=== PATIENT | female | born 1985 | race Caucasian/White ===

== ENCOUNTER 2016-07-07 04:25 | Emergency (ER) | payer OTHER ==
[~2016-07-07 04:25] MED LIST: NITR100C62 PO; ONDA4TAB10 SL; [UNRECOGNIZED DRUG - CODE] PO
[2016-07-07 04:39] VITALS: BP 119/67
--- NOTE | 2016-07-07 04:59 | ED.ADGEN ---
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 Pt states that at work she was lifting a pt and strained her upper back on 07/03 , she was prescribed ibuprofen. Back sx improving, no leg sx/saddle anesthesia/ incontinence. On 07/05 pt states she developed L-sided abdominal discomfort which she says worsened last night. Described as sharp/crampy, constant worsened with some positions no bloating/n/v/d. States she thinks she may be constipated, she had one small hard BM yesterday which she had to strain to produce. No fever/chills /myalgias/cough/cp/sob/carrion. Pt is (comfort supp only) child greater than 1 year old. Pt denies trauma,surgery,estrogen use,history of DVT or PE, and immobilization[] Review of Systems Constitutional: Denies fever or chills [] Eyes: Denies change in visual acuity, redness, or eye pain [] HENT: Denies nasal congestion or sore throat [] Respiratory: Denies cough or shortness of breath [] Cardiovascular: No additional information not addressed in HPI [] GI: see HPI, Denies nausea, vomiting, bloody stools or diarrhea [] : Denies dysuria or hematuria [] Musculoskeletal: see HPI, Denies joint pain [] Integument: Denies rash or skin lesions [] Neurologic: Denies headache, focal weakness or sensory changes [] Endocrine: Denies polyuria or polydipsia [] Family History n/c Current Medication Current Medications Medications (Trade) Dose Ordered Sig/Tesha Start Time Stop Time Status Last Admin Dose Admin Dicyclomine HCl (Bentyl) 20 mg 1X ONCE 07/07/16 05:45 07/07/16 05:46 UNV Glycerin (Sani-Supp Adult) 1 supp 1X ONCE 07/07/16 05:45 07/07/16 05:46 UNV Lactulose 20 gm 1X ONCE 07/07/16 05:45 07/07/16 05:46 UNV ibuprofen Allergies Allergies Coded Allergies Type Severity Reaction Last Updated Verified Penicillins Allergy Unknown 5/25/15 No Physical Exam Constitutional: Well developed, well nourished, no acute distress, pt moves gingerly/carefully as if to avoid pain HENT: Normocephalic, atraumatic, bilateral external ears normal, oropharynx moist, no oral exudates, nose normal. [] Eyes: PERRLA, EOMI, conjunctiva normal, no discharge. [] Neck: Normal range of motion, no tenderness, supple, no stridor. [] Cardiovascular:Heart rate regular rhythm, peripheral pulses normal Lungs & Thorax: Bilateral breath sounds clear to auscultation [] Abdomen: Bowel sounds normal, soft, nondistended, L-sided TTP no r/g/mass, neg mcburney/villasenor Skin: Warm, dry, no erythema, no rash. [] Back: No tenderness, no CVA tenderness. [] Extremities: No tenderness, no cyanosis, no clubbing, ROM intact, no edema. [] Neurologic: Alert and oriented X 3, normal motor function, normal sensory function, no focal deficits noted. [] Psychologic: Affect normal, judgement normal, mood normal. [] Negative Abdominal Assessment The patient denies flank pain, anorexia, nausea or vomiting, dysphagia, black or bloody stools or weight loss. EKG Results [] Radiology/Procedures [] Current Data Laboratory Tests Test 07/07/16 04:30 07/07/16 04:55 07/07/16 04:57 Urine Collection Type Unknown Urine Color Yellow Urine Clarity Clear Urine pH 5.5 Urine Specific [place] 1.020 Urine Protein Neg (NEG-TRACE) Urine Glucose (UA) Negmg/dL (NEG) Urine Ketones (Stick) Negmg/dL (NEG) Urine Blood Neg (NEG) Urine Nitrite Neg (NEG) Urine Bilirubin Neg (NEG) Urine Urobilinogen Dipstick 0.2mg/dL (0.2 mg/dL) Urine Leukocyte Esterase Neg (NEG) Urine RBC 0/HPF (0-2) Urine WBC 1-4/HPF (0-4) Urine Squamous Epithelial Cells Few/LPF Urine Bacteria Few/HPF (0-FEW) White Blood Count 7.9x10^3/uL (4.0-11.0) Red Blood Count 4.64x10^6/uL (3.50-5.40) Hemoglobin 13.9g/dL (12.0-15.5) Hematocrit 42.0% (36.0-47.0) Mean Corpuscular Volume 91fL (79-100) Mean Corpuscular Hemoglobin 30pg (25-35) Mean Corpuscular Hemoglobin Concent 33g/dL (31-37) Red Cell Distribution Width 13.1% (11.5-14.5) Platelet Count 309x10^3/uL (140-400) Neutrophils (%) (Auto) 54% (31-73) Lymphocytes (%) (Auto) 31% (24-48) Monocytes (%) (Auto) 11% (0-9) H Eosinophils (%) (Auto) 4% (0-3) H Basophils (%) (Auto) 1% (0-3) Neutrophils # (Auto) 4.3x10^3uL (1.8-7.7) Lymphocytes # (Auto) 2.4x10^3/uL (1.0-4.8) Monocytes # (Auto) 0.8x10^3/uL (0.0-1.1) Eosinophils # (Auto) 0.3x10^3/uL (0.0-0.7) Basophils # (Auto) 0.0x10^3/uL (0.0-0.2) Sodium Level 140mmol/L (136-145) Potassium Level 3.7mmol/L (3.5-5.1) Chloride Level 103mmol/L (98-107) Carbon Dioxide Level 26mmol/L (21-32) Anion Gap 11 (6-14) Blood Urea Nitrogen 21mg/dL (7-20) H Creatinine 0.9mg/dL (0.6-1.0) Estimated GFR (Cockcroft-Gault) 74.0 BUN/Creatinine Ratio 23 (6-20) H Glucose Level 102mg/dL (70-99) H Calcium Level 8.4mg/dL (8.5-10.1) L Total Bilirubin 0.3mg/dL (0.2-1.0) Aspartate Amino Transf (AST/SGOT) 15U/L (15-37) Alanine Aminotransferase (ALT/SGPT) 33U/L (14-59) Alkaline Phosphatase 64U/L (46-116) Total Protein 7.2g/dL (6.4-8.2) Albumin 3.9g/dL (3.4-5.0) Albumin/Globulin Ratio 1.2 (1.0-1.7) Lipase 151U/L (73-393) Bedside Urine HCG, Qualitative hcg negative (Negative) Active Scripts Medications Dose Route/Sig Days Date Category Zofran Odt (Ondansetron) 4 Mg Tab.rapdis 1 Tab SL Q6HRS 09/14/14 Rx Macrobid 100 Mg Capsule (Nitrofurantoin Monohyd/M-Cryst) 100 Mg Capsule 1 Cap PO BID 09/14/14 Rx 19 Chewable Tablet ( Vit/Iron Fumarate/Fa) 1 Each Tab.chew 1 Each PO DAILY 09/14/14 Reported Vital Signs Date Time Temp Pulse Resp B/P Pulse Ox O2 Delivery O2 Flow Rate FiO2 07/07/16 04:39 98.2 61 20 98 Room Air Vital Signs Date Time Temp Pulse Resp B/P Pulse Ox O2 Delivery O2 Flow Rate FiO2 07/07/16 04:39 98.2 61 20 98 Room Air Vital Signs Date Time Temp Pulse Resp B/P Pulse Ox O2 Delivery O2 Flow Rate FiO2 07/07/16 04:39 98.2 61 20 98 Room Air Course & Med Decision Making Pertinent Labs and Imaging studies reviewed. (See chart for details) []AAS: no acute cardiopulmonary process, retained stool otherwise nonspecific nonobstructive bowel gas pattern. Labs/urine unremarkable I discussed treatment plan, pt expressed agreement/understanding. Critical Care Time Critical care time was [] minutes exclusive of procedures. Final Impression [] Problems: Departure Disposition: 01 HOME, SELF-CARE Diagnosis: constipation Condition: GOOD Patient Instructions: Constipation, Adult, [id number] Additional Instructions: Aggressive hydration, Increase noncaffeinated fluids (water) to 8-10 glasses daily. Increase dietary (psyllium) fiber to 20g daily. Increase daily exercise to stimulate bowels. Rx: lactulose, dicyclomine, glycerin supp, use as directed. As you are , need to "pump and dump" while taking these meds. Follow up with your doctor Sunday if not better. Return to ED with new or changing symptoms. TRACEE HOOD DO Jul 07, 2016 04:59
[2016-07-07 05:12] LABS: BASO % 1 % (0-3); EOS # 0.3 x10^3/uL (0.0-0.7); EOS % 4 % (0-3); HEMOGLOBIN 13.9 g/dL (12.0-15.5); LYMPH # 2.4 x10^3/uL (1.0-4.8); LYMPH % 31 % (24-48); MEAN CORPUSCULAR HEMOGLOBIN 30 pg (25-35); MEAN CORPUSCULAR HGB CONC 33 g/dL (31-37); MEAN CORPUSCULAR VOLUME 91 fL (79-100); MONO # 0.8 x10^3/uL (0.0-1.1); MONO % 11 % (0-9); NEUT # 4.3 x10^3uL (1.8-7.7); NEUT % 54 % (31-73); PLATELET COUNT 309 x10^3/uL (140-400); RED BLOOD COUNT 4.64 x10^6/uL (3.50-5.40); RED CELL DISTRIBUTION WIDTH 13.1 % (11.5-14.5); WHITE BLOOD COUNT 7.9 x10^3/uL (4.0-11.0)
[2016-07-07 05:18] LABS: BILIRUBIN,URINE NEG (NEG); CLARITY,URINE CLEAR; COLOR,URINE YELLOW; GLUCOSE,URINE NEG (NEG)
[2016-07-07 05:19] LABS: BACTERIA,URINE FEW /HPF (0-FEW); NITRITE,URINE NEG (NEG); RBC,URINE 0 /HPF (0-2); SQUAMOUS EPITHELIAL CELL,UR FEW /LPF; UROBILINOGEN,URINE 0.2 mg/dL (0.2 mg/dL)
[2016-07-07 05:24] LABS: ALBUMIN 3.9 g/dL (3.4-5.0); ALBUMIN/GLOBULIN RATIO 1.2 (1.0-1.7); CALCIUM 8.4 mg/dL (8.5-10.1); CREATININE 0.9 mg/dL (0.6-1.0); POTASSIUM 3.7 mmol/L (3.5-5.1); TOTAL BILIRUBIN 0.3 mg/dL (0.2-1.0); TOTAL PROTEIN 7.2 g/dL (6.4-8.2)
[2016-07-07] MEDS ORDERED: DICYCLOMINE HCL 20 MG TABLET PO ONE (06:00)
[2016-07-07] MEDS ORDERED: GLYCERIN ADULT 1 SUPP.RECT. PR ONE (06:00)
[2016-07-07] MEDS ORDERED: LACTULOSE 20 GM/30 ML SOLUTION. PO ONE (06:00)
--- NOTE | 2016-07-07 07:09 | RAD ---
Acute abdomen series with chest, 3 views, 07/07/2016: History: Left-sided abdominal pain There is a moderate amount stool in the right colon. The abdominal gas pattern shows no evidence of obstruction. No free air is seen in the abdomen. There is no evidence of organomegaly or abnormal abdominal calcification. The heart size is normal. The lungs are clear. There is no evidence of pleural fluid. IMPRESSION: No acute abdominal abnormality is detected.
== END 2016-07-07 05:45 | disposition home or self-care (01) ==
LOC: ER 04:25
DX: K59.00 Constipation, unspecified (principal); Z87.891 Personal history of nicotine dependence; Z88.0 Allergy status to penicillin
CPT/HCPCS: 36415; 74022; 80053; 81001; 81025; 83690; 85027; 99285-25

== ENCOUNTER 2017-11-02 10:26 | Emergency (ER) | payer OTHER ==
[~2017-11-02] VITALS: Ht 147.3 cm; Wt 81.6 kg
[2017-11-02 10:38] VITALS: BP 104/39
[2017-11-02] MEDS ORDERED: AZIT250T PO (10:48)
[2017-11-02] MEDS ORDERED: HYDR115S2 PO (10:48)
--- NOTE | 2017-11-02 10:49 | PHYS DOC ---
Past History Past Medical History: No Pertinent History Past Surgical History: Other Smoking: Non-smoker, Quit Greater Than 1 Year Alcohol Use: None Drug Use: None Adult General Chief Complaint Chief Complaint: FACE PAIN HPI HPI 32-year-old female patient complaining of nasal congestion and facial pain with sore throat and earache for the last several days with fever up to 100 since yesterday. Patient states she has history of sinus infection once a year and she thinks she has the same problem again. Review of Systems Review of Systems Constitutional: Reports fever Eyes: Denies change in visual acuity, redness, or eye pain [] HENT: Reports nasal congestion and sore throat and earache Respiratory: Reports cough, denies shortness of breath] Cardiovascular: No additional information not addressed in HPI [] GI: Denies abdominal pain, nausea, vomiting, bloody stools or diarrhea [] : Denies dysuria or hematuria [] Musculoskeletal: Denies back pain or joint pain [] Integument: Denies rash or skin lesions [] Neurologic: Denies headache, focal weakness or sensory changes [] Endocrine: Denies polyuria or polydipsia [] All other systems were reviewed and found to be within normal limits, except as documented in this note. Allergies Allergies Allergies Coded Allergies Type Severity Reaction Last Updated Verified Penicillins Allergy Unknown 11/02/17 No Physical Exam Physical Exam Constitutional: Well developed, well nourished, mild distress, non-toxic appearance. [] HENT: Normocephalic, atraumatic, bilateral external ears normal, oropharynx moist, pharyngeal erythema, no oral exudates, nasal congestion with erythematous mucosa, maxillary sinus tenderness Eyes: PERRLA, EOMI, conjunctiva normal, no discharge. [] Neck: Normal range of motion, no tenderness, supple, no stridor. [] Cardiovascular:Heart rate regular rhythm, no murmur [] Lungs & Thorax: Bilateral breath sounds clear to auscultation [] Neurologic: Alert and oriented X 3, normal motor function, normal sensory function, no focal deficits noted. [] Psychologic: Affect normal, judgement normal, mood normal. [] Current Patient Data Vital Signs Vital Signs Date Time Temp Pulse Resp B/P (MAP) Pulse Ox O2 Delivery O2 Flow Rate FiO2 11/02/17 10:38 98.9 81 18 98 Room Air EKG EKG [] Radiology/Procedures Radiology/Procedures [] Course & Med Decision Making Course & Med Decision Making discharge: I've spoken with the patient and/or caregivers. I've explained the patient's condition, diagnosis and treatment plan based on information available to me at this time. I've answered the patient's and/or caregivers questions and addressed any concerns. The patient and/or caregivers have a good understanding the patient's diagnosis, condition and treatment plan as can be expected at this point. Vital signs have been stabilized. The patient's condition is stable for discharge from the emergency department. The patient will pursue further outpatient evaluation with her primary care provider or other designated consulting physician as outlined in the discharge instructions. Patient and/or caregivers are agreeable to this plan of care and follow-up instructions have been explained in detail. The patient and/or caregivers have received these instructions in written format and expressed understanding of these discharge instructions. The patient and her caregivers are aware that if any significant change in condition or worsening of symptoms should prompt him to immediately return to this of the closest emergency department. If an emergent department is not readily available I would encourage him to call 911. Dragon Disclaimer Dragon Disclaimer This electronic medical record was generated, in whole or in part, using a voice recognition dictation system. Departure Departure: Impression: Primary Impression: Sinusitis, acute Disposition: 01 HOME, SELF-CARE (at 1046) Condition: STABLE Referrals: DANIELLE LOZA (PCP) Patient Instructions: Sinusitis Additional Instructions: Drink plenty of liquids Follow-up with your primary care physician in 3-5 days Return to ER if not getting better Quit smoking Scripts Azithromycin (ZITHROMAX) 250 Mg Tablet 1 PKG PO UD, #1 PKG Prov: PHILOMENA PAUL MD 11/02/17 Hydrocodone/Chlorphen P-Stirex (Tussionex Pennkinetic Susp) 115 Ml Ambar.er.12h 5 ML PO BID, #60 ML Prov: PHILOMENA PAUL MD 11/02/17 PHILOMENA PAUL MD Nov 02, 2017 10:49
== END 2017-11-02 10:55 | disposition home or self-care (01) ==
LOC: ER 10:26
DX: J01.90 Acute sinusitis, unspecified (principal); Z87.891 Personal history of nicotine dependence; Z88.0 Allergy status to penicillin
CPT/HCPCS: 99283

== ENCOUNTER 2019-06-25 17:04 | Emergency (ER) | payer OTHER ==
[~2019-06-25] VITALS: Ht 147.3 cm; Wt 79.5 kg
[~2019-06-25 17:04] MED LIST changes: +AZIT250T PO; +HYDR115S2 PO
--- NOTE | 2019-06-25 17:06 | PHYS DOC ---
Past History Past Medical History: No Pertinent History Past Surgical History: Other Smoking: Non-smoker, Quit Greater Than 1 Year Alcohol Use: None Drug Use: None Adult General Chief Complaint Chief Complaint: ".... Been having chest pain all day ...since about noon ... 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 Pain is rated 2 out of 10. Dull and uncomfortable. Radiates from center chest to back. Pain has been constant since noon today. No specific pleuritic component. No history of trauma. No history of travel. Is exposed to sick patients in her life at work. Patient has not had cardiac problems. Is a family history of diabetes hypertension and high cholesterol on both mother and father. No history of DVT or pulmonary embolisms with her or family members. Pt. follows with [facility] Quan. Review of Systems Review of Systems Constitutional: Denies fever or chills [] Eyes: Denies change in visual acuity, redness, or eye pain [] HENT: Denies nasal congestion or sore throat [] Respiratory: Denies cough or shortness of breath [] Cardiovascular: No additional information not addressed in HPI [] GI: Denies abdominal pain, nausea, vomiting, bloody stools or diarrhea [] : Denies dysuria or hematuria [] Musculoskeletal: Denies back pain or joint pain [] Integument: Denies rash or skin lesions [] Neurologic: Denies headache, focal weakness or sensory changes [] Endocrine: Denies polyuria or polydipsia [] All other systems were reviewed and found to be within normal limits, except as documented in this note. Family History Family History Diabetes, hypertension, high cholesterol mother and father Current Medications Current Medications See nursing for home meds Allergies Allergies Allergies Coded Allergies Type Severity Reaction Last Updated Verified Penicillins Allergy Unknown 11/02/17 No Physical Exam Physical Exam Constitutional: Mild to moderate distress, non-toxic appearance. [] HENT: Normocephalic, atraumatic, bilateral external ears normal, oropharynx m oist, no oral exudates, nose normal. Old scar on forehead Eyes: PERRLA, EOMI, conjunctiva normal, no discharge. Glasses Neck: Normal range of motion, no tenderness, supple, no stridor. [] Cardiovascular:Heart rate regular rhythm, no murmur [] Lungs & Thorax: Bilateral breath sounds equal apex on auscultation [] Abdomen: Bowel sounds normal, soft, no tenderness, no masses, no pulsatile masses. [] Skin: Warm, dry, no erythema, no rash. Tattoos Back: No tenderness, no CVA tenderness. [] Extremities: No tenderness, no cyanosis, no clubbing, ROM intact, no edema. No cording appreciated] Neurologic: Alert and oriented X 3, normal motor function, normal sensory function, no focal deficits noted. [] Psychologic: Affect anxious, judgement normal, mood normal. [] EKG EKG My interpretation EKG shows a sinus bradycardia at 60 bpm. No findings acute STEMI with contralateral changes.[] No significant change from strip run at 1622 hrs. at [place] Radiology/Procedures Radiology/Procedures [][place] [address] IMAGING REPORT Signed PATIENT: CLINT BURKS RACCOUNT: [id number] : 1985 LOCATION: ER AGE: 34 SEX: F EXAM STATUS: REG ER ORD. PHYSICIAN: SALOMON BROCK MD REASON: CHEST PAIN PROCEDURE: CHEST PA & LATERAL CHEST PA LATERAL Technique: PA and lateral views of the chest were obtained. Clinical History: Chest pain Comparison: None. Findings: The heart and pulmonary vasculature appear within normal limits. The lungs are clear. The pleural margins are clear. Impression: No acute chest process is seen. Electronically signed by: Saray Molina III, MD (06/25/2019 6:03 PM) [id number] DICTATED AND SIGNED BY: SARAY MOLINA III, MD DATE: 06/25/19 1803 CC: SALOMON BROCK MD; DANIELLE QUAN ~ Course & Med Decision Making Course & Med Decision Making Pertinent Labs and Imaging studies reviewed. (See chart for details) Patient declines admission for further evaluation at this time. Take Tylenol and ibuprofen for discomfort. Consider taking half aspirin a day. Consider outpatient stress testing. Return if any concerns. Follow-up with cardiology. Review ED record with primary care. Impression: 1. Chest wall pain [] Dragon Disclaimer Dragon Disclaimer This electronic medical record was generated, in whole or in part, using a voice recognition dictation system. Departure Departure: Disposition: HOME/RESIDENCE PRIOR TO ADM Condition: STABLE Referrals: DANIELLE QUAN (PCP) Drag[place]illiam Disclaimer This chart was dictated in whole or in part using Voice Recognition software in a busy, high-work load, and often noisy Emergency Department environment. It may contain unintended and wholly unrecognized errors or omissions. Dragon Disclaimer This chart was dictated in whole or in part using Voice Recognition software in a busy, high-work load, and often noisy Emergency Department environment. It may contain unintended and wholly unrecognized errors or omissions. SALOMON BROCK MD Jun 25, 2019 17:06
[2019-06-25] MEDS: IV RINGERS SOLUTION,LACTATED 1,000 ML IV SCH (17:14)
[2019-06-25] MEDS: ASPIRIN 81 MG TAB.CHEW PO ONE (17:15)
[2019-06-25 17:38] VITALS: BP 99/77
--- NOTE | 2019-06-25 17:42 | EKG ---
[address] [address] Test Date: 2019-06-25 Test Time: 17:17:35 Pat Name: CLINT BURKS Department: Room: Gender: F Regulatory Submissions Specialist: : 1985 Requested By: SALOMON BROCK Order Number: [id number] Reading MD: Measurements Intervals [place] Rate: 60 P: 51 OK: 158 QRS: 51 QRSD: 72 T: 17 QT: 400 QTc: 404 Interpretive Statements SINUS RHYTHM NO SPECIFIC ECG ABNORMALITIES RI6.01 No previous ECG available for comparison
[2019-06-25 17:48] LABS: BASO % 1 % (0-3); EOS # 0.2 x10^3/uL (0.0-0.7); EOS % 3 % (0-3); HEMATOCRIT 39.5 % (36.0-47.0); HEMOGLOBIN 13.2 g/dL (12.0-15.5); LYMPH # 1.9 x10^3/uL (1.0-4.8); LYMPH % 29 % (24-48); MEAN CORPUSCULAR HEMOGLOBIN 30 pg (25-35); MEAN CORPUSCULAR HGB CONC 33 g/dL (31-37); MEAN CORPUSCULAR VOLUME 91 fL (79-100); MONO # 0.5 x10^3/uL (0.0-1.1); MONO % 7 % (0-9); NEUT # 4.1 x10^3uL (1.8-7.7); NEUT % 61 % (31-73); PLATELET COUNT 354 x10^3/uL (140-400); RED BLOOD COUNT 4.35 x10^6/uL (3.50-5.40); RED CELL DISTRIBUTION WIDTH 12.8 % (11.5-14.5); WHITE BLOOD COUNT 6.7 x10^3/uL (4.0-11.0)
[2019-06-25 17:49] LABS: BARBITURATES NEG (NEG); BENZODIAZEPINES NEG (NEG); CANNABINOIDS NEG (NEG); COCAINE NEG (NEG); METHADONE NEG (NEG); OPIATES NEG (NEG); PHENCYCLIDINE NEG (NEG)
[2019-06-25 17:50] LABS: AMPHETAMINE/METHAMPHETAMINE NEG (NEG)
[2019-06-25 17:55] LABS: CALCIUM 8.6 mg/dL (8.5-10.1); CREATININE 0.9 mg/dL (0.6-1.0); GFR 72.6; POTASSIUM 3.5 mmol/L (3.5-5.1)
[2019-06-25 18:01] LABS: ALBUMIN 3.9 g/dL (3.4-5.0); DIRECT BILIRUBIN 0.1 mg/dL (0.0-0.2); TOTAL BILIRUBIN 0.3 mg/dL (0.2-1.0)
--- NOTE | 2019-06-25 18:06 | RAD ---
CHEST PA LATERAL Technique: PA and lateral views of the chest were obtained. Clinical History: Chest pain Comparison: None. Findings: The heart and pulmonary vasculature appear within normal limits. The lungs are clear. The pleural margins are clear. Impression: No acute chest process is seen. Electronically signed by: Meng Hilton III, MD (06/25/2019 6:03 PM) [id number]
[2019-06-25 18:08] LABS: BACTERIA,URINE MOD /HPF (0-FEW); BILIRUBIN,URINE NEG (NEG); CLARITY,URINE HAZY; COLOR,URINE YELLOW; GLUCOSE,URINE NEG (NEG); NITRITE,URINE NEG (NEG); SQUAMOUS EPITHELIAL CELL,UR MANY /LPF
[2019-06-25] MEDS: KETOROLAC 30 MG/ML VIAL. IVP ONE (20:06)
== END 2019-06-25 20:10 | disposition home or self-care (01) ==
LOC: ER 17:04
DX: R07.89 Other chest pain (principal); Z87.891 Personal history of nicotine dependence; Z88.0 Allergy status to penicillin
CPT/HCPCS: 36415; 71046; 80048; 80076; 80307; 81001; 81025; 82550; 83690; 83735; 84443; 84484; 85025; 85379; 85610; 85730; 87086; 93005; 96374; 99285; J1885; J7120

== ENCOUNTER 2021-08-20 04:45 | Emergency (ER) | payer SELFPAY ==
[~2021-08-20] VITALS: Ht 147.3 cm; Wt 75.9 kg
--- NOTE | 2021-08-20 05:06 | PHYS DOC ---
Past History Past Medical History: No Pertinent History Past Surgical History: No Surgical History Smoking: Non-smoker, Quit Greater Than 1 Year Alcohol Use: None Drug Use: None Adult General HPI HPI Patient is a 36-year-old female with a past medical history significant for kidney stones who presents with left-sided flank pain which started yesterday, with radiation to the groin, 7 out of 10, sharp in nature which feels similar to previous episodes. Denies recent travels, traumas, illness, fevers, chest pain, shortness of breath, other abdominal pain, vomiting but does have mild nausea, hematuria, diarrhea or blood in the stool. Endorses dysuria. Denies any vaginal bleeding, discharge, pain or history of STIs. Review of Systems Review of Systems Review of systems otherwise unremarkable except noted in HPI Allergies Allergies Allergies Coded Allergies Type Severity Reaction Last Updated Verified Penicillins Allergy Unknown 11/02/17 No Physical Exam Physical Exam Constitutional: Well developed, well nourished, no acute distress, non-toxic appearance. [] HENT: Normocephalic, atraumatic, bilateral external ears normal, oropharynx moist, no oral exudates, nose normal. [] Eyes: conjunctiva normal, no discharge. [] Neck: Normal range of motion, no tenderness, supple, no stridor. [] Cardiovascular:Heart rate regular rhythm, no murmur [] Lungs & Thorax: Bilateral breath sounds clear to auscultation [] Abdomen: soft, no tenderness, no masses, no pulsatile masses. [] Skin: Warm, dry, no erythema, no rash. [] Back: no CVA tenderness. [] Extremities: No tenderness, no cyanosis, no clubbing, ROM intact, no edema. [] Neurologic: Alert and oriented X 3, no focal deficits noted. [] Psychologic: Affect normal, judgement normal, mood normal. [] EKG EKG [] Radiology/Procedures Radiology/Procedures [] Heart Score C/O Chest Pain: No Risk Factors: Risk Factors: DM, Current or recent (<one month) smoker, HTN, HLP, family history of CAD, obesity. Risk Scores: Risk Factors: DM, Current or recent (<one month) smoker, HTN, HLP, family history of CAD, obesity. Course & Med Decision Making Course & Med Decision Making Patient is a 36-year-old female who presents with left-sided flank pain Vital signs nonconcerning. Physical exam noted above. Given pain and nausea medicine [] Dragon Disclaimer Dragon Disclaimer This electronic medical record was generated, in whole or in part, using a voice recognition dictation system. Departure Departure: Impression: Primary Impression: Flank pain Additional Impressions: Ureterolithiasis Dysuria Disposition: HOME / SELF CARE / HOMELESS Condition: STABLE Referrals: PCP,NO (PCP) Patient Instructions: Diet for Kidney Stones, Kidney Stones Additional Instructions: Thank you for coming into the emergency department tonight and allowing us to take care of you. Please read the attached information carefully to go over things we discussed. You can continue Tylenol, and ibuprofen as well as Benadryl as needed. Please use your prescription pain medicine as needed every 6 hours. Please use your nausea medicine as needed every 6 hours as well. Please stay well-hydrated. Please follow-up on Sunday with your primary care physician update on your ED visit and set up a follow-up. Please strain your urine to catch your kidney stone as it is about to fall on your bladder as we discussed so you should be passing it soon. Please be aware he can also have a little blood in your urine. Please come back to the emergency department immediately with new or concerning symptoms as discussed. Problem Qualifiers PIETRO SCOTT MD Aug 20, 2021 05:05
[2021-08-20] MEDS ORDERED: KETOROLAC 60 MG/2 ML VIAL. IM ONE (05:15)
[2021-08-20] MEDS ORDERED: ONDANSETRON ODT 4 MG TAB.RAPDIS PO ONE (05:15)
--- NOTE | 2021-08-20 05:30 | RAD ---
Study: CT abdomen/pelvis without intravenous contrast Indication: Left flank pain. Comparison: None. Technique: Helical CT imaging performed of the abdomen and pelvis without the use of intravenous cont rast. Sagittal and coronal reformats were obtained. One or more of the following individualized dose reduction techniques were utilized for this examinat ion: 1. Automated exposure control 2. Adjustment of the mA and/or kV according to patient size 3. Use of iterative reconstruction technique. Findings: Inherently limited evaluation without intravenous contrast. Small hiatal hernia. Unremarkable visualized lungs. Within normal limits liver, gallbladder, biliary tree, pancreas, spleen and adrenal glands. Mild hydroureteronephrosis on the left in the setting of a 4.5 mm stone at the ureterovesicular junct ion. No stone or collecting system dilatation on the right. Within normal limits uterus and ovaries for patient age. Mild volume colonic stool burden. Normal appendix. Nondilated small bowel. Mildly prominent but not pathologically enlarged precaval lymph node on image 38 series 2. No free fl uid or pneumoperitoneum. No significant osseous finding. Impression: 1. Mild hydroureteronephrosis on the left with an obstructing 4.5 mm stone at the ureterovesicular ju nction. 2. Small hiatal hernia. Electronically signed by: MAYTE CHUNG MD (08/20/2021 5:27 AM) B[facility]
[2021-08-20] MEDS ORDERED: ONDANSETRON 4MG ODT 4TABLET STARTPACK. PO ONE (05:45)
[2021-08-20] MEDS ORDERED: ACETAMINOPHEN/CODEINE 300/30MG 4TABLET STARTPACK. PO ONE (05:45)
[2021-08-20] MEDS ORDERED: CIPROFLOXACIN HCL 500 MG TABLET PO ONE (05:45)
[2021-08-20] MEDS ORDERED: oxyCODONE/APAP 5/325 1 TAB TABLET PO ONE (05:45)
[2021-08-20] MEDS ORDERED: CIPR500T94 PO (05:46)
[2021-08-20 05:50] LABS: CLARITY,URINE HAZY; COLOR,URINE YELLOW; GLUCOSE,URINE NEG (NEG)
[2021-08-20 05:51] LABS: BACTERIA,URINE 0 /HPF (0-FEW); NITRITE,URINE NEG (NEG); RBC,URINE >40 /HPF (0-2); SQUAMOUS EPITHELIAL CELL,UR FEW /LPF; UROBILINOGEN,URINE 0.2 mg/dL (0.2 mg/dL); WBC,URINE OCC /HPF (0-4)
[2021-08-20 06:01] VITALS: BP 122/74
== END 2021-08-20 06:03 | disposition home or self-care (01) ==
LOC: ER 04:45
DX: N13.2 Hydronephrosis with renal and ureteral calculous obstruction (principal); Z87.891 Personal history of nicotine dependence; Z88.0 Allergy status to penicillin
CPT/HCPCS: 74176; 81001; 81025; 96372; 99284; J1885; Q0162